=== PATIENT | female | born 1990 | race Caucasian/White ===

== ENCOUNTER 2017-06-17 00:27 | Emergency (ER) | payer MEDICAID ==
[~2017-06-17] VITALS: Ht 175.3 cm; Wt 43.7 kg
[2017-06-17 01:05] VITALS: BP 122/51
[2017-06-17] MEDS ORDERED: HYDROmorphone 1 MG/ML, 1ML ONE (01:13)
[2017-06-17] MEDS ORDERED: HYDROmorphone 1 MG/ML, 1ML IM ONE (01:30)
[2017-06-17 01:33] LABS: HEMOGLOBIN 12.3 g/dL (11.7-16.4); WHITE BLOOD COUNT 10.9 x10^3/uL (3.4-10)
[2017-06-17] MEDS ORDERED: KETOROLAC 30 MG/1 ML ONE (01:42)
[2017-06-17] MEDS ORDERED: KETOROLAC 30 MG/1 ML IM ONE (02:00)
== END 2017-06-17 04:32 | disposition home or self-care (01) ==
LOC: ED 04:26
DX: O03.1 Delayed or excessive hemorrhage following incomplete spontaneous abortion (principal)
CPT/HCPCS: 36415; 76801; 84702; 85025; 96372; 99285; J1170; J1885